=== PATIENT | female | born 1980 | race Two or more races ===

== ENCOUNTER 2016-12-06 12:44 | Emergency (ER) | payer OTHER ==
[~2016-12-06] VITALS: Ht 165.1 cm; Wt 68.8 kg
[~2016-12-06 12:44] MED LIST: ALOELIQ9 PO; CIPR500T4 PO; FLAXOIL2 PO; LACTCAP7 PO; OMEGCAP21 PO
[2016-12-06 13:09] VITALS: BP 114/70; PULSE 58; RESP 16; TEMP 98.6; O2SAT 100
[2016-12-06] MEDS ORDERED: BUPIVACAINE HCL PF 0.5% 10 ML VIAL INFIL ONE (13:45)
--- NOTE | 2016-12-06 14:16 | PD ---
HPI Chief Complaint: Laceration/Skin Injury Time Seen by Provider: 13:50 Travel History International Travel<30 days: No Contact w/Intl Traveler<30days: No Traveled to known affect area: No History of Present Illness HPI Patient is a 36-year-old female presenting to the emergency department for evaluation of a laceration to her right fourth finger. Laceration occurred yesterday while cutting food at home. Patient presented to her primary doctor today, primary doctor cleaned the wound thoroughly and applied Steri-Strips as well as administering a tetanus vaccine. She was advised to come to the emergency department for repair. FOR[facility]LY [facility] Past Medical History Asthma: Yes (CHILDHOOD) Autoimmune Disease: Yes (PATIENCE POSITIVE 2010, LUPUS?) Heart Rhythm Problems: Yes (MITRAL VALVE PROLAPSE) Cardiovascular Problems: Yes (MILTRAL VALVE PROLAPSE) Diminished Hearing: No Gastrointestinal Disorders: Yes (IBS) Reproductive: Yes (POLYCYSTIC OVARIAN DISEASE) Tetanus Vaccination: < 5 Years Influenza Vaccination: Yes ?: Not LMP: 11/09/2016 : 2 Para: 2 Ovarian Cysts: Yes (POLYCYSTIC OVARY) Past Surgical History Tonsillectomy: Yes (1989) Social History Alcohol Use: No Tobacco Use: No Substance Use: No Allergies-Medications (Allergen,Severity, Reaction): Coded Allergies: No Known Allergies (Verified , 12/06/16) Reported Meds & Prescriptions Reported Meds & Active Scripts Active Review of Systems Except as stated in HPI: all other systems reviewed are Neg Skin: Positive Other (laceration) Physical Exam Narrative GENERAL: Well-nourished, well-developed patient. SKIN: Warm and dry. V-shaped 0.5 cm laceration to the left fourth finger on the plantar aspect over the PIP joint. Brisk capillary refill, full range of motion in finger. Positive radial pulse. Patient is neurovascularly intact. HEAD: Normocephalic. EYES: No scleral icterus. No injection or drainage. NECK: Supple, trachea midline. No JVD or lymphadenopathy. CARDIOVASCULAR: Regular rate and rhythm without murmurs, gallops, or rubs. RESPIRATORY: Breath sounds equal bilaterally. No accessory muscle use. GASTROINTESTINAL: Abdomen soft, non-tender, nondistended. MUSCULOSKELETAL: No cyanosis, or edema. BACK: Nontender without obvious deformity. No CVA tenderness. Data Data Last Documented VS Vital Signs Date Time Temp Pulse Resp B/P Pulse Ox O2 Delivery O2 Flow Rate FiO2 12/06/16 13:09 98.6 58 16 114/70 100 Orders Bupivacaine Pf 0.5% Inj (Marcaine Pf 0.5 (12/06/16 13:45) MDM Medical Decision Making Medical Screen Exam Complete: Yes Emergency Medical Condition: Yes Interpretation(s) Vital Signs Date Time Temp Pulse Resp B/P Pulse Ox O2 Delivery O2 Flow Rate FiO2 12/06/16 13:09 98.6 58 16 114/70 100 Differential Diagnosis Skin avulsion versus laceration versus abrasion versus other Narrative Course Patient's 36-year-old female presenting to the emergency department for evaluation of a laceration occurred last night while cooking dinner. Patient's tetanus vaccine was updated by her primary doctor today. She is neurovascularly intact. She has wedding rings on her left fourth finger, she is unable to remove them. They are not restricting her circulation at this time. Patient was advised that we could cut them offer her in the emergency department today. Since the wound occurred yesterday and she has had no significant swelling she decided to leave them in place. The laceration of the fourth finger appears more consistent with a skin avulsion. See procedure report for repair. Patient was advised of skin may slough off. Repair was performed to control bleeding. Patient was advised stitches will need to come out in 10 days, she was encouraged to either come to the emergency department or follow-up with her primary provider to have this performed. She verbalized understanding of these instructions. Patient stable for discharge. Procedures Procedure Narrative LACERATION LOCATION: Left fourth finger on the plantar aspect over the PIP joint LENGTH: V-shaped 0.5 cm skin avulsion NUMBER OF STITCHES/LOI: 3 stitches REPAIR: The area of the laceration was prepped with Betadine and sterilely draped. The laceration was infiltrated with 0.5% bupivacaine. The wound was copiously irrigated and explored without evidence of foreign body, tendon injury or neurovascular injury. The wound was closed using 4-0 Prolene. This was a 1 layer repair. A sterile dressing was applied. The patient was advised to keep the dressing clean and dry. Patient tolerated the procedure well. Diagnosis Primary Impression: Avulsion of skin of finger without complication Qualified Code: S61.209A - Avulsion of skin of finger without complication, initial encounter Referrals: Primary Care Physician Patient Instructions: Care For Your Stitches (ED), General Instructions, Skin Avulsion (ED), Stitches Removal (DC) Additional Instructions: Stitches will need to be removed in 10 days, this can be performed in the emergency department or with her primary doctor Keep extremity elevated, you may apply cool compress to alleviate any swelling. If swelling worsens she may need to return to emergency department to have rings removed to prevent issues with her circulation. Return to emergency department if any new or worsening symptoms. Keep sutures clean and dry, you may apply topical antibiotic ointment. Use finger splint to help with healing. Med/Other Pt SpecificInfo: No Change to Meds Scripts No Active Prescriptions or Reported Meds Disposition: 01 DISCHARGE HOME Condition: Stable Latonia Childers Dec 06, 2016 14:16
== END 2016-12-06 14:35 | disposition home or self-care (01) ==
LOC: PHEFT 12:44
DX: S61.200A Unspecified open wound of right index finger without damage to nail, initial encounter (principal); W26.0XXA Contact with knife, initial encounter; Y93.G1 Activity, food preparation and clean up; Y92.010 Kitchen of single-family (private) house as the place of occurrence of the external cause; Y99.9 Unspecified external cause status
CPT/HCPCS: 12001